=== PATIENT | male | born 1980 | race Caucasian/White ===

== ENCOUNTER 2017-01-13 05:40 | Day surgery (SDC) | payer BC ==
[~2017-01-13 05:40] MED LIST: DENIES; NO HOME MEDS
[2017-01-13] MEDS ORDERED: ST. JOHN'S WOR300 M2 PO (06:04)
== END 2017-01-13 11:55 ==
LOC: SRG 05:40 → SHSB 05:44 → ORW 07:29 → PACU 09:06 → SHSB 09:25
PROC: 0YU64JZ Supplement Left Inguinal Region with Synthetic Substitute, Percutaneous Endoscopic Approach (ICD-10-PCS; principal; 2017-01-13)
PROC: 0WQF0ZZ Repair Abdominal Wall, Open Approach (ICD-10-PCS; 2017-01-13)
DX: K40.30 Unilateral inguinal hernia, with obstruction, without gangrene, not specified as recurrent (principal); K42.9 Umbilical hernia without obstruction or gangrene; Z87.891 Personal history of nicotine dependence; Z88.0 Allergy status to penicillin; Z88.1 Allergy status to other antibiotic agents; Z98.890 Other specified postprocedural states
CPT/HCPCS: C1781; J1956